=== PATIENT | male | born 1975 | race Caucasian/White ===

== ENCOUNTER 2021-02-23 05:42 | Observation (INO) ==
[2021-02-23 06:24] LABS: Basophils % 0.9 %; Eosinophils # 0.2 K/mcL (0.0-0.6); Eosinophils % 5.2 %; Hematocrit 45.1 % (37.5-50.1); Hemoglobin 15.9 g/dL (12.9-16.9); Immature Granulocytes % 0.5 % (0-4); Lymphocytes # 1.7 K/mcL (0.6-4.6); Lymphocytes % 38.1 %; Mean Corpuscular HGB Conc 35.3 g/dL (31.6-35.5); Mean Corpuscular Hemoglobin 32.4 pg (28.0-33.3); Mean Corpuscular Volume 91.9 fL (83.0-100.0); Mean Platelet Volume 11.6 fL (9.4-12.4); Monocytes # 0.4 K/mcL (0.0-1.3); Monocytes % 8.3 %; Neutrophils # 2.1 K/mcL (1.6-8.9); Platelet Count 157 K/mcL (140-400); Red Blood Count 4.91 M/mcL (4.19-5.50); Red Cell Distribution Width 11.9 % (11.5-14.5); White Blood Count 4.4 K/mcL (4.3-11.1)
[2021-02-23 06:34] LABS: Prothrombin Time 11.6 Seconds (9.4-12.1)
[2021-02-23 06:36] LABS: Activated Partial Thrombo Time 29.6 Seconds (26.0-36.0)
[2021-02-23 06:49] LABS: BUN/Creatinine Ratio 15 (6-26); Blood Urea Nitrogen 17 mg/dL (6-20); Carbon Dioxide 20 mEq/L (23-29); Chloride 107 mEq/L (98-107); Glucose 165 mg/dL (70-105); Osmolality,Calculated 289 (280-300); Potassium 3.9 mEq/L (3.5-5.1); Sodium 137 mEq/L (136-145); Troponin I < 0.03 ng/mL (< 0.04); eGFR For African Americans > 60 (> 60); eGFR For Non-African Americans > 60 (> 60)
[2021-02-23] MEDS ORDERED: Isovue-370 500 ML BOTTLE IVP ONE (08:44)
[2021-02-23] MEDS ORDERED: 0.9 % Sodium Chloride 1,000 ML IV ONE (08:44)
[2021-02-23] MEDS ORDERED: Aspirin 81 MG TAB.CHEW PO SCH (09:00)
[2021-02-23] MEDS: Nitroglycerin 0.4 MG TAB.SUBL SL SCH (09:05)
[2021-02-23] MEDS ORDERED: Acetaminophen 325 MG TABLET PO PRN (10:52)
[2021-02-23] MEDS ORDERED: Ondansetron 4 MG/2 ML VIAL IVP PRN (10:52)
[2021-02-23] MEDS ORDERED: Melatonin 3 MG TABLET PO PRN (10:52)
[2021-02-23] MEDS ORDERED: *HR* Enoxaparin 40 MG/0.4 ML SYRINGE SQ ONE (11:10)
[2021-02-23 14:35] LABS: Alanine Aminotransferase 41 Units/L (7-52); Albumin 4.4 g/dL (3.5-5.7); Albumin/Globulin Ratio 1.5 (1.1-2.2); Alkaline Phosphatase 57 Units/L (34-104); Aspartate Amino Transferase 23 Units/L (13-39); Bilirubin,Indirect 0.4 mg/dL (0.0-1.0); Bilirubin,Total 0.4 mg/dL (0.3-1.0); Globulin 2.9 g/dL (2.4-3.5); Total Protein 7.3 g/dL (6.4-8.9)
[2021-02-23 14:40] LABS: Thyroid Stimulating Hormone 2.257 mcIU/mL (0.340-5.600)
[2021-02-23] MEDS ORDERED: Perflutren Lipid Microsphere 1.3 ML in 0.9 % Sodium Chloride 8.7 ML IVP PRN (16:17)
[2021-02-24] MEDS: *HR* Enoxaparin 40 MG/0.4 ML SYRINGE SQ SCH (05:45)
[2021-02-24] MEDS ORDERED: Regadenoson 0.4 MG/5 ML SYRINGE IVP ONE (06:10)
[2021-02-24 07:47] LABS: Hematocrit 46.8 % (37.5-50.1); Mean Corpuscular HGB Conc 34.2 g/dL (31.6-35.5); Mean Corpuscular Hemoglobin 32.1 pg (28.0-33.3); Mean Corpuscular Volume 93.8 fL (83.0-100.0); Mean Platelet Volume 11.7 fL (9.4-12.4); Platelet Count 144 K/mcL (140-400); Red Blood Count 4.99 M/mcL (4.19-5.50); White Blood Count 4.4 K/mcL (4.3-11.1)
[2021-02-24 08:14] LABS: INR 1.1; Prothrombin Time 12.8 Seconds (9.4-12.1)
[2021-02-24 08:38] LABS: BUN/Creatinine Ratio 11 (6-26); Blood Urea Nitrogen 13 mg/dL (6-20); Calcium 9.3 mg/dL (8.6-10.3); Carbon Dioxide 24 mEq/L (23-29); Chloride 106 mEq/L (98-107); Chol/HDL Ratio 5.7 (0-4.9); Cholesterol 172 mg/dL (< 200); Glucose 144 mg/dL (70-105); HDL Cholesterol 30 mg/dL (40-59); LDL Cholesterol,Calculated 99 mg/dL (< 100); Magnesium 2.1 mg/dL (1.6-2.6); Osmolality,Calculated 289 (280-300); Phosphorous 2.5 mg/dL (2.7-4.5); Sodium 138 mEq/L (136-145); Triglycerides 217 mg/dL (< 150); Troponin I < 0.03 ng/mL (< 0.04); eGFR For African Americans > 60 (> 60); eGFR For Non-African Americans > 60 (> 60)
[2021-02-24] MEDS: Aspirin 81 MG TAB.CHEW PO SCH (09:57)
[2021-02-24 10:59] LABS: Estimated Average Glucose 134 mg/dl; Hemoglobin A1C 6.3 %
[2021-02-24] MEDS: Nitroglycerin 0.4 MG TAB.SUBL SL SCH (23:12)
[2021-02-25] MEDS: *HR* Enoxaparin 40 MG/0.4 ML SYRINGE SQ SCH (04:22)
[2021-02-25] MEDS: Aspirin 81 MG TAB.CHEW PO SCH (08:08)
[2021-02-25] MEDS ORDERED: GI Cocktail 40 ML EACH PO ONE (09:24)
[2021-02-25 15:16] VITALS: BP 143/93
[2021-02-25] MEDS ORDERED: *HR* Metoprolol 5 MG/5 ML VIAL IVP ONE ×2 (15:35→15:58)
[2021-02-25] MEDS ORDERED: Nitroglycerin 0.4 MG TAB.SUBL SL PRN (15:37)
[2021-02-25] MEDS ORDERED: Isovue-370 500 ML BOTTLE IVP ONE (15:57)
[2021-02-25] MEDS ORDERED: Nitroglycerin 0.4 MG TAB.SUBL SL ONE (16:21)
[2021-02-25] MEDS ORDERED: 0.9 % Sodium Chloride 1,000 ML ONE (16:21)
== END 2021-02-25 18:05 | disposition home or self-care (01) ==
LOC: EMEROOARM 05:42 → CDU 05:42 → SUATTDRO 11:18 → 3BNU 11:50
PROVIDERS: ADMIT Internal Medicine; ATTEND Registered Nurse